=== PATIENT | female | born 1985 | race Two or more races ===

== ENCOUNTER 2021-11-15 09:56 | Emergency (ER) | payer MEDICAID ==
[~2021-11-15] VITALS: Ht 157.5 cm; Wt 59.0 kg
[2021-11-15 10:14] VITALS: BP 116/81
--- NOTE | 2021-11-15 10:14 | NUR ---
BIBS C/O LEFT EAR PAIN XCOUPLE DAYS AND STARTED TO HAVE A HEADACHE TODAY. VITALS ARE WITHIN NORMAL LIMITS.
--- NOTE | 2021-11-15 10:19 | NUR ---
DR VALDERRAMA AT BEDSIDE
[2021-11-15] MEDS ORDERED: NEOM10DR11 LEFT EAR (10:25)
--- NOTE | 2021-11-15 10:29 | NUR ---
Patient discharged to home in stable condition. Written and verbal after care instructions given. Patient verbalizes understanding of instruction.
== END 2021-11-15 10:30 | disposition home or self-care (01) ==
LOC: ER 10:17
DX: H92.02 Otalgia, left ear (principal); R68.84 Jaw pain; Z79.899 Other long term (current) drug therapy